=== PATIENT | female | born 1950 | race Caucasian/White ===

== ENCOUNTER 2016-12-10 20:30 | Emergency (ER) | payer OTHER, BC ==
[2016-12-10 23:05] VITALS: BP 113/63
== END 2016-12-10 22:48 | disposition home or self-care (01) ==
LOC: ED 20:30
DX: S16.1XXA Strain of muscle, fascia and tendon at neck level, initial encounter (principal); M62.830 Muscle spasm of back; R07.89 Other chest pain; K21.9 Gastro-esophageal reflux disease without esophagitis; V79.40XA Driver of bus injured in collision with unspecified motor vehicles in traffic accident, initial encounter; Y93.I9 Activity, other involving external motion; Y99.8 Other external cause status; Y92.410 Unspecified street and highway as the place of occurrence of the external cause
CPT/HCPCS: J1885; Q0092